=== PATIENT | female | born 1975 | race Caucasian/White ===

== ENCOUNTER 2022-08-14 07:58 | Outpatient (CLI) | payer BC, MEDICAID, SELFPAY ==
--- NOTE | 2022-08-14 08:14 | MM_ITS ---
WS: [id number] BILATERAL SCREENING DIGITAL BREAST MAMMOGRAPHY WITH STEPHEN DISPLACEMENT VIEWS. CAD PERFORMED. HISTORY: SCREENING COMPARISON: None available. Bilateral craniocaudal and mediolateral oblique views are performed with tomosynthesis and SM. Stephen displacement views in CC and MLO projection also performed. Breasts composition: There are scattered areas of fibroglandular density. There is a focal asymmetry measuring 13 x 7 mm seen on the LEFT cc view posterior to the nipple. No corresponding abnormality s een on the remaining LEFT breast views. The implants are intact. MM/[place] [id number] IMPRESSION: BI-RADS: 0-Incomplete: Need additional imaging evaluation FOLLOW-UP: Need Additional Imaging LEFT breast: Spot compression views (CC and MLO). Compression views over the an terior LEFT breast. True ML. Ultrasound to follow if abnormality persists.
== END 2022-08-14 07:59 | disposition home or self-care (01) ==
PROVIDERS: PCP Family Medicine; Visit Provider Family Medicine
DX: Z12.31 Encounter for screening mammogram for malignant neoplasm of breast (principal)
CPT/HCPCS: 77063; 77067

== ENCOUNTER 2022-09-09 11:44 | Outpatient (CLI) | payer BC, MEDICAID, SELFPAY ==
--- NOTE | 2022-09-09 11:54 | MM_ITS ---
WS: [id number] ADDITIONAL VIEWS LEFT MAMMOGRAM WITH DIGITAL BREAST TOMOSYNTHESIS. HISTORY: ABNORMAL MAMMO COMPARISON: 08/14/2022 Spot compression views LEFT breast in CC, MLO projections and true ML submitted with digital breast t omosynthesis and SM. The asymmetry identified in the anterior LEFT breast on the screening mammogram is no longer present. Resolved with additional imaging. MM/[place] [id number] IMPRESSION: BI-RADS: 2-Benign FOLLOW UP: 1 Year Follow-up
--- NOTE | 2022-09-09 13:22 | US_ITS ---
WS: [id number] ULTRASOUND LEFT BREAST HISTORY: PATIENT DIRECTED PAIN COMPARISON: None available. TECHNIQUE: 2-D and Doppler. Ultrasound LEFT breast is directed to the area of pain. No abnormality is identified. There is normal soft tissue prominence in the region of the nipple. Patient does have a breast implant. US/US breast LT limited* [id number] IMPRESSION: BI-RADS: 2-Benign FOLLOW-UP: 1 Year Follow-up
== END 2022-09-09 11:45 | disposition home or self-care (01) ==
LOC: RAD 11:45
PROVIDERS: PCP Family Medicine; Visit Provider Family Medicine
DX: R92.8 Other abnormal and inconclusive findings on diagnostic imaging of breast (principal); N64.4 Mastodynia
CPT/HCPCS: 76642; 77061; G0279

== ENCOUNTER → 2023-08-19 07:59 | Outpatient (BNVA) | payer BC, MEDICAID, SELFPAY | PROVIDERS: PCP Family Medicine; Visit Provider Nurse Practitioner Women's Health | DX: Z12.4 Encounter for screening for malignant neoplasm of cervix (principal); N92.6 Irregular menstruation, unspecified | CPT/HCPCS: 82670; 83001; 83002; 84146; 84443; 87624 ==